=== PATIENT | male | born 1950 | race Caucasian/White ===

== ENCOUNTER 2021-07-23 08:06 | Emergency (ER) | payer OTHER ==
[2021-07-23] MEDS ORDERED: Sodium Chloride 0.9% 1,000 ML IV ONE (08:10)
[2021-07-23] MEDS ORDERED: Potassium Chloride 20 MEQ Tab.ER PO ONE (09:02)
[2021-07-23] MEDS: Potassium Chloride 10 MEQ in Premix Bag 1 BAG IV SCH ×3 (09:18→11:14)
[2021-07-23 09:41] VITALS: BP 107/58; PULSE 78
[2021-07-23] MEDS ORDERED: Magnesium Sulfate/Water 2 GM in Premix Bag 1 BAG IV ONE (09:58)
== END 2021-07-23 13:00 | disposition home or self-care (01) ==
LOC: JD.ED 08:06
DX: S00.03XA Contusion of scalp, initial encounter (principal); E87.6 Hypokalemia; R55 Syncope and collapse; Z79.01 Long term (current) use of anticoagulants; Z79.899 Other long term (current) drug therapy; Z86.73 Personal history of transient ischemic attack (TIA), and cerebral infarction without residual deficits; W19.XXXA Unspecified fall, initial encounter
CPT/HCPCS: 36415; 70450; 71045; 72125; 80053; 83735; 84484; 85025; 85610; 93005; 96365; 96366; 96368; 99285; A9270; J3475; J3480; J7030

== ENCOUNTER 2021-08-13 23:46 | Emergency (ER) | payer OTHER ==
[2021-08-14 00:15] VITALS: BP 116/66; PULSE 103
[2021-08-14] MEDS ORDERED: Acetaminophen 325 MG Tab PO ONE (00:44)
[2021-08-14] MEDS ORDERED: Sodium Chloride 0.9% 500 ML IV ONE (01:24)
[2021-08-14 02:03] LABS: CORONAVIRUS COVID-19 NAA NEGATIVE (NEGATIVE)
== END 2021-08-14 04:55 | disposition home or self-care (01) ==
LOC: JD.ED 23:46
DX: R41.0 Disorientation, unspecified (principal); N17.9 Acute kidney failure, unspecified; I48.91 Unspecified atrial fibrillation; E78.00 Pure hypercholesterolemia, unspecified; M19.90 Unspecified osteoarthritis, unspecified site; N18.9 Chronic kidney disease, unspecified; D63.1 Anemia in chronic kidney disease; Z86.73 Personal history of transient ischemic attack (TIA), and cerebral infarction without residual deficits; Z79.899 Other long term (current) drug therapy; Z79.01 Long term (current) use of anticoagulants; Z72.0 Tobacco use; Z20.822 Contact with and (suspected) exposure to COVID-19
CPT/HCPCS: 0240U; 36415; 70450; 71046; 73030; 80048; 81001; 83735; 85025; 85379; 93005; 99285; A9270; J7030

== ENCOUNTER 2021-09-27 12:53 | Inpatient (IN) | payer OTHER ==
[2021-09-27] MEDS ORDERED: Sodium Chloride 0.9% 1,000 ML IV STA ×2 (14:54→18:42)
[2021-09-27] MEDS: Sodium Chloride 0.9% 10 ML Syringe FLUSH PRN ×2 (15:05→16:44)
[2021-09-27] MEDS ORDERED: Ondansetron 4 MG/2 ML SDV IVPUSH ONE (15:29)
[2021-09-27] MEDS ORDERED: Famotidine 20 MG/2 ML SDV IVPUSH ONE (15:29)
[2021-09-27] MEDS ORDERED: Iopamidol 755 Mg/ML 100 ML Bottle IVPUSH ONE (16:35)
[2021-09-27] MEDS ORDERED: Sodium Chloride 0.9% 10 ML Syringe FLUSH ONE (16:35)
[2021-09-27] MEDS ORDERED: Sodium Chloride 0.9% 100 ML IV SCH (16:45)
[2021-09-27] MEDS ORDERED: Sodium Chloride 0.9% with KCl 1,000 ML IV SCH (18:45)
[2021-09-27] MEDS ORDERED: Magnesium Sulfate/Water 2 GM in Premix Bag 1 BAG IV ONE (19:54)
[2021-09-27] MEDS ORDERED: D5 1/2 NS w/ 40 mEq/L KCl 1,000 ML IV SCH (20:00)
[2021-09-27] MEDS ORDERED: Acetaminophen 325 MG Tab PO PRN (20:09)
[2021-09-27] MEDS ORDERED: Ondansetron 4 MG/2 ML SDV IVPUSH PRN (20:10)
[2021-09-27] MEDS: Carvedilol 12.5 MG Tab PO SCH (21:29)
[2021-09-28] MEDS ORDERED: Sodium Chloride 0.9% 100 ML IV SCH (07:30)
[2021-09-28] MEDS ORDERED: Sodium Chloride 0.9% 250 ML IV SCH (08:30)
[2021-09-28] MEDS: Carvedilol 12.5 MG Tab PO SCH ×2 (08:47→20:49)
[2021-09-28] MEDS ORDERED: Zoledronic Acid 4 MG in Sodium Chloride 0.9% 100 ML IV ONE (09:00)
[2021-09-28] MEDS: Famotidine 20 MG Tab PO SCH (12:33)
[2021-09-28] MEDS: D5 1/2 NS w/ 40 mEq/L KCl 1,000 ML IV SCH (22:55)
[2021-09-29] MEDS: oxyCODONE 5 MG Tab PO PRN (00:28)
[2021-09-29 07:08] LABS: VITAMIN D,25-HYDROXY 20.5 ng/ml (30.0-100.0)
[2021-09-29] MEDS: Thiamine 500 MG in Sodium Chloride 0.9% 100 ML IV SCH (08:59)
[2021-09-29] MEDS: Famotidine 20 MG Tab PO SCH (08:59)
[2021-09-29] MEDS: Carvedilol 12.5 MG Tab PO SCH ×2 (08:59→20:15)
[2021-09-29] MEDS: Cholecalciferol (Vitamin D3) 5,000 UNIT Tab PO SCH (08:59)
[2021-09-29] MEDS: D5 1/2 NS w/ 40 mEq/L KCl 1,000 ML IV SCH (12:34)
[2021-09-30] MEDS: oxyCODONE 5 MG Tab PO PRN (00:35)
[2021-09-30] MEDS: D5 1/2 NS w/ 40 mEq/L KCl 1,000 ML IV SCH (02:04)
[2021-09-30] MEDS ORDERED: LORazepam 2 MG/ML SDV IVPUSH PRN (08:33)
[2021-09-30] MEDS ORDERED: LORazepam 2 MG/ML SDV ONE (08:42)
[2021-09-30] MEDS: Thiamine 500 MG in Sodium Chloride 0.9% 100 ML IV SCH (09:04)
[2021-09-30] MEDS: Morphine 2 MG/ML SYRINGE IVPUSH PRN ×3 (12:19→21:10)
[2021-09-30] MEDS: Cholecalciferol (Vitamin D3) 5,000 UNIT Tab PO SCH (12:27)
[2021-09-30] MEDS: Famotidine 20 MG Tab PO SCH (12:27)
[2021-09-30] MEDS: Carvedilol 12.5 MG Tab PO SCH ×2 (12:27→21:09)
[2021-09-30] MEDS ORDERED: Lidocaine 2% Jelly 10 ML Urojet MUCMEM ONE (15:15)
[2021-09-30] MEDS: LORazepam 2 MG/ML SDV IVPUSH PRN (21:09)
[2021-10-01] MEDS: LORazepam 2 MG/ML SDV IVPUSH PRN ×2 (01:06→05:34)
[2021-10-01] MEDS: Morphine 2 MG/ML SYRINGE IVPUSH PRN ×3 (01:07→09:59)
[2021-10-01] MEDS: Morphine 10 MG/0.5 ML Oral Syringe PO PRN ×2 (10:15→12:25)
[2021-10-01] MEDS ORDERED: Scopolamine 1.5 MG Transdermal Patch TRDERM SCH (10:15)
[2021-10-01] MEDS: LORazepam 1 MG Tab PO PRN ×2 (11:40→15:43)
[2021-10-01] MEDS: Cholecalciferol (Vitamin D3) 5,000 UNIT Tab PO SCH (11:45)
[2021-10-01] MEDS: Carvedilol 12.5 MG Tab PO SCH (11:45)
[2021-10-01] MEDS: Famotidine 20 MG Tab PO SCH (11:45)
[2021-10-01] MEDS: Thiamine 500 MG in Sodium Chloride 0.9% 100 ML IV SCH (11:46)
[2021-10-01] MEDS ORDERED: Morphine 10 MG/0.5 ML Oral Syringe PO PRN (14:24)
[2021-10-01] MEDS ORDERED: Sodium Chloride 0.9% 10 ML Syringe FLUSH PRN (15:57)
[2021-10-01] MEDS ORDERED: LORazepam 2 MG/ML SDV IV PRN (16:15)
[2021-10-01] MEDS: Morphine 4 MG/ML Syringe IV PRN ×2 (16:20→18:26)
[2021-10-01] MEDS ORDERED: Lidocaine 2% Jelly 10 ML Urojet MUCMEM ONE (17:54)
[2021-10-01] MEDS ORDERED: Sodium Chloride 0.9% 10 ML Syringe FLUSH SCH (21:00)
[2021-10-01 22:23] VITALS: BP 116/87; PULSE 79
[2021-10-02] MEDS: Morphine 4 MG/ML Syringe IV PRN ×3 (00:22→05:27)
[2021-10-04] MEDS ORDERED: [UNRECOGNIZED DRUG - REMARK] TRDERM SCH (11:00)
== END 2021-10-02 11:20 | disposition expired | DRG 375 ==
LOC: JD.ED 12:53 → JD.MS 19:35 → UNDOADMIN 19:35
PROVIDERS: ADMIT Internal Medicine; ATTEND Internal Medicine
PROC: 30233N1 Transfusion of Nonautologous Red Blood Cells into Peripheral Vein, Percutaneous Approach (ICD-10-PCS; principal; 2021-09-27)
DX: C18.3 Malignant neoplasm of hepatic flexure (principal); C78.7 Secondary malignant neoplasm of liver and intrahepatic bile duct; I42.9 Cardiomyopathy, unspecified; I13.0 Hypertensive heart and chronic kidney disease with heart failure and stage 1 through stage 4 chronic kidney disease, or unspecified chronic kidney disease; R64 Cachexia; E83.52 Hypercalcemia; R62.7 Adult failure to thrive; Z51.5 Encounter for palliative care; Z66 Do not resuscitate; Z20.822 Contact with and (suspected) exposure to COVID-19; I48.91 Unspecified atrial fibrillation; I50.9 Heart failure, unspecified; E78.00 Pure hypercholesterolemia, unspecified; I44.7 Left bundle-branch block, unspecified; K80.20 Calculus of gallbladder without cholecystitis without obstruction; M19.90 Unspecified osteoarthritis, unspecified site; N52.9 Male erectile dysfunction, unspecified; F43.10 Post-traumatic stress disorder, unspecified; C18.9 Malignant neoplasm of colon, unspecified; D50.0 Iron deficiency anemia secondary to blood loss (chronic); E87.6 Hypokalemia; F41.9 Anxiety disorder, unspecified; N18.9 Chronic kidney disease, unspecified; R45.1 Restlessness and agitation; R91.1 Solitary pulmonary nodule; C61 Malignant neoplasm of prostate; R45.6 Violent behavior; R13.10 Dysphagia, unspecified; D69.59 Other secondary thrombocytopenia; D63.8 Anemia in other chronic diseases classified elsewhere; Z79.01 Long term (current) use of anticoagulants; Z79.899 Other long term (current) drug therapy; I69.328 Other speech and language deficits following cerebral infarction; Z87.891 Personal history of nicotine dependence; Z95.810 Presence of automatic (implantable) cardiac defibrillator; Z95.5 Presence of coronary angioplasty implant and graft; Z98.49 Cataract extraction status, unspecified eye; Z68.20 Body mass index [BMI] 20.0-20.9, adult; Z88.8 Allergy status to other drugs, medicaments and biological substances; Z88.5 Allergy status to narcotic agent
CPT/HCPCS: 36415; 70450; 71046; 74177; 80053; 81001; 83690; 83735; 85025; 86140; 96365; 96375; 99285; J2405; J3480; J3490 ×4; J7030; Q9967; 36430; 51702; 51798; 82140; 82306; 83615; 83970; 85027; 85379; 85384; 85610; 85730; 86850; 86900; 86901; 86922; 94761; A9270-GY; J2060; J2270; J3411; J3475; J3489; J7050; P9016; U0002